=== PATIENT | female | born 1965 | race Caucasian/White ===

== ENCOUNTER 2017-04-02 08:16 | Emergency (ER) | payer BC, MEDICAID ==
[2017-04-02 09:59] VITALS: BP 137/77
--- NOTE | 2017-04-02 10:53 | ER ---
DATE SEEN: 04/02/2017 The patient was seen at 08:30 a.m. /[id number] LUCIANO/AMY
--- NOTE | 2017-04-04 16:07 | CR ---
INDICATION: Inversion ankle sprain, stepping in ground hole. RIGHT ANKLE: Three views of the right ankle revealed soft tissue swelling overlying the lateral malleolus. Some very minimal degenerative changes are suggested at the medial malleolus. The ankle mortise was otherwise unremarkable with no evidence of a fracture or dislocation identified. There was noted a small to moderate sized plantar calcaneal spur. IMPRESSION: 1. No acute fracture or dislocation. 2. Minimal degenerative changes medial malleolus. 3. Heel spur. MTDD
--- NOTE | 2017-04-05 10:43 | ER ---
DATE SEEN: 04/02/2017 HISTORY OF PRESENT ILLNESS: This pleasant 52-year-old woman was going across to get to the other friend's house last night. She went across the garden and stepped in the garden hole. 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 This pleasant woman otherwise is healthy. Other diagnosis of asthma, the patient uses Breo for her asthma. No diabetes, heart disease, high blood pressure, or other serious illnesses. ALLERGIES: Amitriptyline, cephalosporins, erythromycin, and Compazine. CURRENT MEDICATIONS: 1. Vilanterol for asthma. 2. Albuterol. 3. Fexofenadine. 4. Sudafed. REVIEW OF SYSTEMS: Otherwise negative. PHYSICAL EXAMINATION: VITAL SIGNS: Blood pressure 143/86, heart rate 75, respirations 18, oxygen saturation 99%, temperature 36.9 degrees centigrade. HEENT: PERRLA intact. Pharynx without abnormality. NECK: Supple. No thyromegaly. Old scar of the neck in transverse anterior neck for bronchoscopic surgery, performed for removal of sarcoid. LUNGS: Clear to auscultation without rales. No wheezes. No rhonchi. HEART: S1, S2. No irregularity of rhythm. ABDOMEN: Soft. No guarding. No abdominal discomfort. EXTREMITIES: Right lower extremity, mild ecchymosis, swelling of lateral malleolus with increased pain on inversion. Mild Achilles discomfort. Ashley's sign negative. Range of motion of ankle is almost normal. IMAGING: X-ray of the ankle reveals no fracture. DIAGNOSES: 1. Right ankle sprain. 2. Sarcoid of the lung removal. 3. Left partial nephrectomy for renal cell carcinoma. 4. 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 5. Status post appendectomy. 6. Status post hemangioma excision of back. 7. Asthma, controlled on Breo. PLAN: The patient had an air splint applied to her ankle, felt much better. She has used 1000 mg of Tylenol and 600 mg of ibuprofen every 6 hours or 1000 mg Tylenol and 800 mg of ibuprofen every 8 hours. Followup with doctor in 1 week. Ice, elevate, minimize walking, and elevate her leg above her heart to diminish the swelling. /[id number] LUCIANO/AMY
== END 2017-04-02 09:55 | disposition home or self-care (01) ==
LOC: FB.ED 08:16
DX: S93.401A Sprain of unspecified ligament of right ankle, initial encounter (principal); J45.909 Unspecified asthma, uncomplicated; Z88.1 Allergy status to other antibiotic agents; Z88.8 Allergy status to other drugs, medicaments and biological substances; W17.2XXA Fall into hole, initial encounter; Y92.89 Other specified places as the place of occurrence of the external cause
CPT/HCPCS: 73610-RT; 99283

== ENCOUNTER 2024-07-10 10:23 | Emergency (ER) | payer OTHER ==
[2024-07-10] MEDS ORDERED: Lidocaine 1% 5 ML VIAL INFILT ONE (10:24)
[2024-07-10 10:48] VITALS: BP 170/108; PULSE 107
== END 2024-07-10 12:03 | disposition home or self-care (01) ==
LOC: FB.ED 10:23
DX: S61.211A Laceration without foreign body of left index finger without damage to nail, initial encounter (principal); S61.213A Laceration without foreign body of left middle finger without damage to nail, initial encounter; S61.215A Laceration without foreign body of left ring finger without damage to nail, initial encounter; J45.909 Unspecified asthma, uncomplicated; Z90.49 Acquired absence of other specified parts of digestive tract; Z88.1 Allergy status to other antibiotic agents; Z88.8 Allergy status to other drugs, medicaments and biological substances; Z79.51 Long term (current) use of inhaled steroids; Z79.899 Other long term (current) drug therapy; W26.0XXA Contact with knife, initial encounter
CPT/HCPCS: 12002; 99282